=== PATIENT | female | born 1945 | race Caucasian/White ===

== ENCOUNTER → 2023-10-29 16:15 | Outpatient (REF) | payer MEDICARE, OTHER, SELFPAY | LOC: HWRAD 16:15 | PROVIDERS: ATTENDING PHYSICIAN Family Medicine | DX: S30.0XXA Contusion of lower back and pelvis, initial encounter (principal) | CPT/HCPCS: 72110; 72220 ==

== ENCOUNTER 2023-11-01 09:06 | Emergency (ER) | payer MEDICARE, OTHER, SELFPAY ==
[2023-11-01 09:12] VITALS: BP 160/72
--- NOTE | 2023-11-01 09:54 | EDRN ---
Dr. La in room w/ pt at [facility] time.
[2023-11-01 10:19] VITALS: BP 170/78; BMI 22.2
--- NOTE | 2023-11-01 10:37 | ED.GENMED ---
History of Present Illness
General
Chief Complaint: Back Pain
Source: patient
Exam Limitations: none
Time Seen by Provider: 11/01/23 09:53
History of Present Illness
History of Present Illness:
78-year-old female lost her balance on a balance ball 3 days ago. She fell backwards onto kettle balls. Complaining of ongoing and progressive mostly lower back pain. Patient had outpatient labs and x-rays done. X-rays were unremarkable.
However concerned with ongoing pain. Denies head injury neck pain shortness of breath abdominal pain although does have abdominal bloating.
Past History
Past History
ED Past Medical History: HTN, Hypercholesterolemia and Other (Polycystic kidney disease)
ED Past Surgical History: Gynecological, Tonsilectomy and Other (Hernia x 2)
Review of Systems
Review of Systems
All Other Systems: Not applicable
: Reports no symptoms; Denies bleeding
Phy Exam
Physical Exam
Physical Exam:
TRAUMA EXAM:
VITAL SIGNS: Vital signs reviewed, cooperative
DISTRESS: No active disease
EYES: Pupils reactive, no orbital trauma
NOSE: No deformity or epistaxis
FACE AND SCALP: No scalp or facial trauma
NECK: Supple nontender
BACK: Back nontender, pelvis stable to compression. Location of pain along the posterior iliac crests however no point tenderness or abrasion. Some tenderness to CVA tenderness across the mid posterior ribs. However no abrasions contusions or
crepitus
RESPIRATORY: No distress, breath sounds normal, no tender chest wall
CARDIAC: No murmur, pulses equal and strong
ABDOMEN: Soft nontender bowel sounds normal
SKIN: Skin intact no bleeding, color normal
EXTREMITIES: Nontender
NEUROLOGICAL: Alert, oriented, no motor deficits
PSYCH: Mood affect normal
Course
Orders/Labs/Results
Orders:
Orders
11/01/23 10:10
CT Abd/pel Without Iv Or Oral Urgent
Comment:
Reason For Exam: Posterior mid back trauma. Posterior pelvic/CVA p
Vital Signs
Initial and Last Documented VS:
Initial Vital Signs
Temp Pulse Resp BP Pulse Ox
98 F 77 16 160/72 98
11/01/23 09:12 11/01/23 09:12 11/01/23 09:12 11/01/23 09:12 11/01/23 09:12
Last Documented Vital Signs
Temp Pulse Resp BP Pulse Ox
98 F 78 16 148/72 100
11/01/23 09:12 11/01/23 11:19 11/01/23 11:19 11/01/23 11:19 11/01/23 11:19
MDM/Problems Addressed
Differential Diagnosis Includes:
Patient with mostly posterior upper pelvic pain. Some pain over the posterior ribs. However no pain with breathing. Equal breath sounds. No gross hematuria. No spinal tenderness. No abdominal tenderness. No sign of neurologic or neck issues.
Patient has polycystic kidney disease. Look very low suspicion for serious injury and therefore we will hold on IV contrast. Plain CT abdomen and pelvis to evaluate the pelvis posterior ribs and kidneys.
*Radiology
Radiology exam reviewed: radiology read reviewed (No acute findings)
*Pulse Oximetry
Patient hypoxic: no
*Critical Care Note
Total Time (30-74mins, 75-104mins- exclusive of procedures): Not Applicable
Update Note
Update Note:
Medically stable. No serious issues clinically or by radiologic testing. Discharged to follow-up
ED Attending Note
-
Portions of this chart may have been created with voice recognition software.� Occasional wrong word or��sound alike� substitutions may have occurred due to the inherent limitations of voice recognition software.
Discharge Plan
Departure
Patient Disposition: Home (Routine Discharge)
Date of Disposition: 11/01/23
Time of Disposition: 12:37
Patient with high blood pressure during this ER visit?: Yes
Discharge Problem:
Back/pelvic contusion
Instructions: BLOOD PRESSURE, Contusion
Prescriptions:
New
hydrocodone-acetaminophen 5-300 mg tablet
0.5 tab PO Q6H PRN (Reason: Pain) Qty: 14 0RF
Referrals:
Briseida Dawkins, DO [Family Provider] - Follow up in 2-3 days
Activity Restrictions/Additional Instructions:
Tylenol or Vicodin for pain
Your prescription was sent to your pharmacy
Close follow-up with your primary physician
Return with increased pain abdominal pain or any other concerning symptoms
Interventions
Interventions:
*Risk Screen - Suicide Last Done: 11/01/23 09:12
*General Assessment Last Done: 11/01/23 09:12
*Neglect/Abuse Screening Last Done: 11/01/23 09:12
ED- Fall Risk Assessment Last Done: 11/01/23 10:23
*ED COVID-19 Vaccine History Last Done: 11/01/23 10:19
ED-Musculoskeletal Assessment Last Done: 11/01/23 10:23
Discharge Date and Time
Print Language: KAZAKH
[2023-11-01 11:19] VITALS: BP 148/72
--- NOTE | 2023-11-01 12:25 | EDRN ---
Pt OOB to BR at this time.
--- NOTE | 2023-11-01 12:29 | EDRN ---
Dr. La in room w/pt at this time.
== END 2023-11-01 12:48 | disposition home or self-care (01) ==
LOC: EMR 09:06
PROVIDERS: EMERGENCY PHYSICIAN Emergency Medicine; FAMILY PHYSICIAN Family Medicine
DX: S30.0XXA Contusion of lower back and pelvis, initial encounter (principal); R10.2 Pelvic and perineal pain; R14.0 Abdominal distension (gaseous); W17.89XA Other fall from one level to another, initial encounter; Y93.B9 Activity, other involving muscle strengthening exercises; Q61.3 Polycystic kidney, unspecified; I10 Essential (primary) hypertension; E78.00 Pure hypercholesterolemia, unspecified
CPT/HCPCS: 99284; 74176